=== PATIENT | female | born 1955 | race Caucasian/White ===

== ENCOUNTER → 2016-06-09 | Outpatient (CLI) | payer OTHER ==
--- NOTE | 2016-06-09 16:56 | DX ---
Right foot, 3 views History: Pain at the 5th metatarsal base. B12 deficiency. M79.671, right foot pain, E53.8. Findings: No acute fracture or dislocation identified. No definite fracture of the toes or metatarsal s. Plantar calcaneal spur. No destructive osseous lesions. No significant joint space narrowing. No d efinite erosions. Impression: 1. No definite acute fracture. 2. Plantar calcaneal spur. 3. No significant degenerative or inflammatory arthropathy.
== END ==
LOC: BRMIMAGING 14:41
PROVIDERS: ATTEND Physician Assistant
DX: M77.31 Calcaneal spur, right foot (principal); E53.8 Deficiency of other specified B group vitamins
CPT/HCPCS: 73630-PO